=== PATIENT | female | born 1985 | race Caucasian/White ===

== ENCOUNTER → 2017-06-04 | Outpatient (CLI) | payer MEDICAID ==
[~2017-06-04] MED LIST: ABILIFY 10MG TA10 MG PO; ABILIFY 15MG TA15 MG; ABILIFY5 MG PO; ALBUTEROL SULFAT8 MG; ALBUTEROL0.09 MG/A1 IH; AMBIEN 5MG TABLE5 MG; AMBIEN5 MG PO; ANXIETY MED; ATARAX 25MG25 MG/TAB PO; ATIVAN 0.50.5 MG/TAB PO; AZASITE 2.5 ML2.5 ML OP; BACTRIM DS 8001 TAB PO; CEFTIN250 MG PO; CLARITIN10 MG PO; DESYREL 100MG100 MG PO; DOXYCYCLINE 10100 MG PO; EPI-PEN1 MG/ML MR; ESTRACE 1MG1 MG/TAB PO; FLEXERIL 1010 MG/TAB PO; GENTAMICIN OPTHA3 GM OP; KLONOPIN 0.5MG0.5 MG PO; LAMICTAL 25MG T25 MG; LEVAQUIN 5500 MG/TA1 PO; LEXAPRO 10MG10 MG PO; LORATADINE10 MG PO; LORTAB 5/500 501 TAB PO; MACROBID 1100 MG/CAP; MACROBID 1100 MG/CAP PO; MEDROL 4MG DOSPA4 MG PO; MOBIC 7.5MG7.5 MG PO; MOBIC15 MG PO; MULTIPLE VITAMI1 CAP PO; NAPROSYN500 MG PO; NEURONTIN100 MG/CAP PO; NEURONTIN300 MG/CAP PO; NO HOME MEDICATIONS; NORCO 325 MG-51 TAB PO; NORCO 325 MG-7.1 TAB PO; NUVARING VAG RING; NUVARING1 ICR VG; OMNICEF 300MG300 MG PO; PERCOCET 325 MG1 TA2 PO; PERCOCET 5/321 UDTAB PO; PREDNISONE20 MG PO; PRENATAL VITAMI1 TA5 PO; REXULTI0.5 MG PO; RISPERDAL 1M1 MG/TAB PO; RISPERDAL2 MG PO; ROBAXIN 50500 MG/TAB PO; SINGULAIR10 MG PO; VALTREX 50500 MG/TAB PO; VENTOLIN0.09 MG IH; VIIBRYD20 MG; WELLBUTRIN 75MG75 MG PO; ZITHROMAX 250M250 MG PO; ZITHROMAX Z PA250 MG PO; ZOLOFT 25MG25 MG; [UNRECOGNIZED DRUG - OTHER] PO
== END ==
LOC: COL.PUL 08:10
DX: D86.2 Sarcoidosis of lung with sarcoidosis of lymph nodes (principal); R91.1 Solitary pulmonary nodule; Z87.891 Personal history of nicotine dependence

== ENCOUNTER → 2018-01-09 | Outpatient (CLI) | payer MEDICAID | LOC: MC.RAD 09:24 | DX: N60.01 Solitary cyst of right breast (principal) ==

== ENCOUNTER → 2018-01-13 | Outpatient (CLI) | payer MEDICAID | LOC: MC.RAD 10:00 | DX: N60.01 Solitary cyst of right breast (principal) ==

== ENCOUNTER 2018-02-10 08:02 | Day surgery (SDC) | payer MEDICAID ==
[~2018-02-10] VITALS: Ht 157.5 cm; Wt 76.7 kg
[~2018-02-10 08:02] MED LIST changes: +ZOLOFT 100MG100 MG PO; -ZOLOFT 25MG25 MG
[2018-02-10] MEDS ORDERED: PLAQUENIL 200M200 MG PO (08:49)
[2018-02-10] MEDS ORDERED: ARAVA10 MG PO (08:50)
[2018-02-10] MEDS ORDERED: BUSPAR5 MG PO (08:50)
[2018-02-10] MEDS ORDERED: PRIL40 PO (09:00)
[2018-02-10] MEDS ORDERED: CARAFATE 1GM1 G PO (10:11)
[2018-02-10 10:17] VITALS: BP 107/64; PULSE 70; TEMP 97.6
[2018-02-10 10:20] VITALS: BP 86/67; PULSE 65; TEMP 97.5
[2018-02-10 10:35] VITALS: BP 98/64; PULSE 67
[2018-02-10 10:50] VITALS: BP 101/77; PULSE 75
== END 2018-02-10 11:10 | disposition home or self-care (01) ==
LOC: SDCO 08:02
DX: K29.30 Chronic superficial gastritis without bleeding (principal); D86.9 Sarcoidosis, unspecified; K44.9 Diaphragmatic hernia without obstruction or gangrene; Z88.0 Allergy status to penicillin; Z88.2 Allergy status to sulfonamides; Z88.1 Allergy status to other antibiotic agents; Z91.040 Latex allergy status
CPT/HCPCS: OP; J2250; J3010; J7030

== ENCOUNTER 2018-03-02 10:24 | Emergency (ER) | payer MEDICAID ==
[~2018-03-02] VITALS: Ht 157.5 cm; Wt 72.7 kg
[~2018-03-02 10:24] MED LIST changes: +ARAVA10 MG PO; +BUSPAR5 MG PO; +CARAFATE 1GM1 G PO; +PLAQUENIL 200M200 MG PO; +PRIL40 PO
[2018-03-02 10:34] VITALS: BP 133/94; PULSE 86; TEMP 98.5
[2018-03-02 11:28] LABS: BASO % 0.4 % (0.0-2.0); EOS # 0.1 (0.0-0.7); EOS % 1.1 % (0-4.0); GRAN # 2.8 (1.4-6.5); GRAN % 60.8 % (42.2-75.2); HEMOGLOBIN 12.6 g/dl (12.5-16.0); LYMPH # 1.5 (1.2-3.4); LYMPH % 32.2 % (20.0-51.0); MEAN CELL VOLUME 86 fl (80.0-100.0); MEAN CORPUSCULAR HEMOGLOBIN 31 pg (27.0-31.0); MEAN CORPUSCULAR HGB CONC 36 g/dl (33.0-37.0); MEAN PLATELET VOLUME 9.2 fl (7.4-10.4); MONO # 0.3 (0.1-0.6); MONO % 5.5 % (1.7-9.3); PLATELET COUNT 147 K/mm3 (130-400); RED BLOOD COUNT 4.05 M/mm3 (4.10-5.30); REDCELL DISTRIBUTION WIDTH-CV 13.1 % (11.5-14.5)
[2018-03-02 11:29] LABS: HEMATOCRIT 34.9 % (37.0-47.0)
[2018-03-02 11:38] LABS: POTASSIUM 3.4 mmol/L (3.4-5.0)
[2018-03-02 11:39] LABS: ALANINE AMINOTRANSFERASE 45 U/L (9-52); ALKALINE PHOSPHATASE 76 U/L (50-136); ANION GAP 11 mmol/L (7-16); AST,SGOT 33 U/L (15-37); BILIRUBIN,TOTAL 0.5 mg/dL (0.0-1.0); BLOOD UREA NITROGEN 15 mg/dL (7-17); CALCIUM 9.3 mg/dL (8.4-10.2); CARBON DIOXIDE 24 mmol/L (22-30); CHLORIDE 109 mmol/L (98-107); CREATININE, serum 0.76 mg/dL (0.52-1.25); GLUCOSE 87 mg/dL (74-106); SODIUM 145 mmol/L (137-145)
[2018-03-02 11:51] LABS: TROPONIN-I < 0.012 ng/mL (0.000-0.034)
== END 2018-03-02 13:12 | disposition home or self-care (01) ==
LOC: COL.ER 10:24
PROVIDERS: Physician Assistant
DX: M79.662 Pain in left lower leg (principal); Z87.891 Personal history of nicotine dependence; Z90.710 Acquired absence of both cervix and uterus; Z98.890 Other specified postprocedural states; Z88.0 Allergy status to penicillin; Z88.1 Allergy status to other antibiotic agents